=== PATIENT | male | born 1990 | race Caucasian/White ===

== ENCOUNTER → 2021-03-10 | Outpatient (CLI) | payer OTHER ==
--- NOTE | 2021-03-10 16:09 | XR ---
EXAMINATION TYPE: XR cervical spine limited DATE OF EXAM: 03/10/2021 TECHNIQUE: Frontal, lateral, oblique, swimmers, and open mouth view of the cervical spine are obtaine d. HISTORY: [id number] M54.42 M99.01 COMPARISON: None FINDINGS: C7-T1 is well visualized. There is no loss of vertebral body height. No significant narrowi ng of the intervertebral disc spaces. No significant spondylolisthesis. Prevertebral soft tissues are unremarkable. The dens is intact. Atlantoaxial articulation is intact. Lung apices are clear. IMPRESSION: 1. No evidence of fracture or dislocation of the cervical spine.
--- NOTE | 2021-03-10 16:36 | XR ---
EXAMINATION TYPE: XR lumbar spine 2 or 3V DATE OF EXAM: 03/10/2021 CLINICAL HISTORY: 30-year-old male with chronic low back pain TECHNIQUE: Frontal, lateral, and oblique images of the lumbar spine are obtained. COMPARISON: None FINDINGS: There are 6 lumbar vertebral bodies with partial sacralization of L6. There is straightenin g of the normal lumbar lordosis likely due to positioning or muscle spasm. No loss of vertebral body height of the lumbar spine. No significant narrowing of the intervertebral disc spaces. There is grad e 1 spondylolisthesis of L6 on S1. This may be due to bilateral spondylolysis. This is not well evalu ated on this study. Oblique radiographs would BE helpful. IMPRESSION: 1. No loss of vertebral body height to suggest acute compression fracture. 2. For purposes of counting there are 6 lumbar type vertebral bodies with partial sacralization of L6 . There is grade 1 anterolisthesis of L6 on S1. This may be due to bilateral spondylolysis. This is i ndeterminate on this study. Oblique radiographs would BE helpful.
== END | disposition home or self-care (01) ==
LOC: RADXRMAIN 15:10
PROVIDERS: ATTEND Chiropractor
DX: M43.17 Spondylolisthesis, lumbosacral region (principal); M99.01 Segmental and somatic dysfunction of cervical region
CPT/HCPCS: 72040; 72100